=== PATIENT | male | born 1995 | race Caucasian/White ===

== ENCOUNTER 2019-03-25 09:31 | Emergency (ER) | payer SELFPAY ==
[~2019-03-25] VITALS: Ht 180.3 cm; Wt 77.0 kg
[2019-03-25] MEDS ORDERED: IBUPROFEN 800MG TABLET PO ONE (11:00)
[2019-03-25] MEDS ORDERED: ACETAMINOPHEN 500MG TABLET PO ONE (11:00)
[2019-03-25 11:17] VITALS: BP 120/72
== END 2019-03-25 13:00 | disposition home or self-care (01) ==
LOC: ER 09:31
DX: S52.612A Displaced fracture of left ulna styloid process, initial encounter for closed fracture (principal); M79.641 Pain in right hand; M25.532 Pain in left wrist; V29.88XA Motorcycle rider (driver) (passenger) injured in other specified transport accidents, initial encounter; Y93.89 Activity, other specified; Y92.89 Other specified places as the place of occurrence of the external cause; Y99.8 Other external cause status
CPT/HCPCS: 29125; 73090; 73110; 73130; 99283